=== PATIENT | male | born 1960 | race Caucasian/White ===

== ENCOUNTER → 2017-05-07 | Outpatient (CLI) | payer OTHER ==
--- NOTE | 2017-05-09 06:55 | CT ---
Procedure: CT CHEST WITH IV CONTRAST Exam date: 05/07/2017 1:30 PM CDT Ordering Provider: JOEY FOSTER Clinical Indication: Chest pain Comparison: None Technique: Using a multislice scanner, sequential axial imaging was obtained in the thorax from the level of the thoracic inlet through the lung bases. The exam was obtained with the administration of IV contrast. 2D sagittal and coronal reconstructed images were obtained. This exam was performed according to our departmental dose-optimization program, which includes automated exposure control, adjustment of the mA and/or kV according to patient size and/or use of iterative reconstruction technique. FINDINGS: Multiloculated thyroid goiter with extensive amorphous calcifications. This extends into the right paratracheal stripe to the level of the AP window. There are no pulmonary masses or nodules. There is no alveolar or interstitial infiltrate. There are no pleural effusions. Cardiac size is normal. There is no pericardial effusion. Aorta and pulmonary arteries are grossly unremarkable. Bullous timing was not sent for pulmonary angiography and segmental or subsegmental pulmonary emboli cannot be excluded. No dissection or aneurysm seen. There is no supraclavicular or axillary lymphadenopathy. There is no mediastinal, hilar, or subcarinal lymphadenopathy. There are no skeletal abnormalities. IMPRESSION 1. Nonacute contrast enhanced CT scan of the chest. 2. Heterogeneous calcified substernal thyroid goiter asymmetric to the right. Electronically signed by: Maury Moody MD 05/09/2017 6:55 AM CDT
== END | disposition home or self-care (01) ==
LOC: CT 13:02
PROVIDERS: ATTEND Internal Medicine Endocrinology, Diabetes & Metabolism
DX: E03.9 Hypothyroidism, unspecified (principal); E04.1 Nontoxic single thyroid nodule

== ENCOUNTER → 2017-10-15 | Outpatient (CLI) | payer OTHER ==
--- NOTE | 2017-10-16 08:48 | US ---
EXAM DESCRIPTION: Thyroid CLINICAL HISTORY: THYROID NODULE COMPARISON: 10/08/2015 TECHNIQUE: Routine sonographic imaging of the thyroid gland. FINDINGS: The right thyroid lobe measures 6.3 x 3.9 x 2.9 cm. The left thyroid lobe measures 3.1 x 0.9 x 1.0 cm. The thyroid isthmus measures 0.4 cm in thickness. Several thyroid nodules are demonstrated. The largest complex mostly solid hyperechoic nodule is in the mid right lobe measuring 4.0 x 2.3 x 2.4 cm. This has increased in size from 3.3 cm on the prior exam. Also demonstrated is an isoechoic complex solid nodule in the right inferior lobe measuring 2.2 x 1.3 x 2.0 cm. 0.4 cm nodule in the left lobe. IMPRESSION: 1. Multinodular appearance of the thyroid. There are 2 nodules in the right thyroid lobe which meet criteria for ultrasound-guided fine-needle aspiration. 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
== END | disposition home or self-care (01) ==
LOC: US 10:00
PROVIDERS: ATTEND Internal Medicine Endocrinology, Diabetes & Metabolism
DX: E04.1 Nontoxic single thyroid nodule (principal)

== ENCOUNTER 2018-01-23 06:05 | Day surgery (SDC) | payer OTHER ==
[2018-01-23] MEDS ORDERED: PROPOFOL 200 MG/20 ML VIAL IV ONE (06:06)
[2018-01-23] MEDS ORDERED: LACTATED RINGERS 1,000 ML ONE (06:10)
--- NOTE | 2018-01-23 10:56 | OP ---
DATE OF PROCEDURE: 01/23/18 PREOPERATIVE DIAGNOSIS: 1. Personal history of polyps. The patient had a large villous adenoma removed in 2016 in a piecemeal fashion. POSTOPERATIVE DIAGNOSIS: 1. Colonic polyps. PROCEDURE: 1. Colonoscopy plus polypectomy. SURGEON: Aplhonse Parnell MD. COMPLICATIONS: None apparent. BLOOD LOSS: None. MEDICATIONS: Monitored anesthesia care. DESCRIPTION OF PROCEDURE: Informed consent was obtained prior to sedation. The preprocedure cardiopulmonary assessment was satisfactory. The patient was placed in the left lateral decubitus position and was sedated. A digital rectal exam was unremarkable. The tip of the Olympus colonoscope was inserted in the rectum and guided over to the cecum. The cecum was identified by locating the ileocecal valve and appendiceal orifice. Prep was good overall. There was some fluid in the left colon that had to be suctioned away to allow for good visibility. The mucosa of the cecum, ascending colon, hepatic flexure , transverse colon, splenic flexure, descending colon and sigmoid colon was closely examined. Direct and retroflexed views of the rectum were obtained. The patient had 2 polyps seen. There was one in the transverse colon that seemed in the proximal transverse colon. It was sessile and about 1.5 cm in length. This was removed in a piecemeal fashion. I tattooed a few centimeters proximal and distal to the polypectomy site. A second polyp was in the descending colon. This was about 6 mm in size and was sessile. This was removed easily in one piece with the hot snare and recovered. The patient had previously had tattooing done in the sigmoid colon. There was no residual polyp seen around the tattooed site. No other polyps or pathology was identified. The procedure was then terminated. RECOMMENDATIONS: 1. Followup polyp pathology. 2. Followup with me in the clinic in a year. 3. He can resume his Plavix tomorrow. #[id number] cc: Terrance Khanna MD [facility]
[2018-01-23 13:16] VITALS: BP 134/83; TEMP 97.2; O2SAT 100
== END 2018-01-23 11:30 | disposition home or self-care (01) ==
LOC: AMB 06:05
PROVIDERS: ATTEND Internal Medicine Gastroenterology
DX: Z12.11 Encounter for screening for malignant neoplasm of colon (principal); D12.4 Benign neoplasm of descending colon; D12.3 Benign neoplasm of transverse colon; E11.9 Type 2 diabetes mellitus without complications; I10 Essential (primary) hypertension; I25.10 Atherosclerotic heart disease of native coronary artery without angina pectoris; E03.9 Hypothyroidism, unspecified; E66.9 Obesity, unspecified; K21.9 Gastro-esophageal reflux disease without esophagitis; Z95.5 Presence of coronary angioplasty implant and graft; Z68.30 Body mass index [BMI] 30.0-30.9, adult; Z86.010 Personal history of colon polyps; Z83.71 Family history of colonic polyps; Z79.84 Long term (current) use of oral hypoglycemic drugs; Z79.02 Long term (current) use of antithrombotics/antiplatelets; Z79.899 Other long term (current) drug therapy
CPT/HCPCS: 00812; 36416; 45385; 82948; J3490; J7120

== ENCOUNTER → 2020-06-16 | Outpatient (CLI) | payer OTHER | LOC: YCFC.O 10:35 | PROVIDERS: ATTEND Family Medicine | DX: L02.811 Cutaneous abscess of head [any part, except face] (principal) ==

== ENCOUNTER → 2020-07-08 | Outpatient (CLI) | payer OTHER ==
--- NOTE | 2020-07-09 10:10 | US ---
US THYROID CLINICAL STATEMENT:59 years Male THYROID NODULE. 3 or 4 prior biopsies benign. No mass. Thyroid medication. COMPARISON: September 2017 thyroid ultrasound. TECHNIQUE: Transcutaneous scanning, grayscale and Doppler modes. FINDINGS: Size right thyroid lobe: 5.9 x 2.6 x 2.2 cm Size left thyroid lobe: 3.9 x 1.0 x 1.3 cm Size isthmus: 0.31 cm Estimated total number of nodules greater than or equal to 1 cm: 2. Nodule 1: Size: 2.2 x 2.1 x 1.8 cm. Measurements in 2017:4.0 x 2.4 x 2.3 cm. Location: Right Mid Composition: solid or almost completely solid: 2 points Echogenicity: isoechoic: 1 point Shape: wider than tall: 0 points Margins: ill-defined: 0 points Echogenic foci: macrocalcifications: 1 point ACR Total Points: 4; ACR TI-RADS risk category: TR4 - moderately suspicious nodule. Nodule 2: Size: 1.9 x 1.8 X 1.4 cm. Measurements in 2017: 2.2 x 2.0 x 1.3 cm. Location: Right Lower Composition: solid or almost completely solid: 2 points Echogenicity: hypoechoic: 2 points Shape: taller than wide: 3 points Margins: ill-defined: 0 points Echogenic foci: peripheral calcifications: 2 points ACR Total Points: >/= 7; ACR TI-RADS risk category: TR5 - highly suspicious nodule. No dominant solid mass, no distinct cyst, fluid collection, or large calcifications. Overlying skin is unremarkable. IMPRESSION: 1. Nodule 1: ACR TI-RADS 2017 Category TR5. This nodule has decreased in size since the prior study. Recommend: Follow-up ultrasound in 1 year.. Recommendations based upon [facility] Best Practice recommendations and ACR TI-RADS 2017 guidelines. Please see below*. 2. Nodule 2: ACR TI-RADS 2017 Category TR4. This nodule has decreased in size since the prior study. Recommend: Follow-up ultrasound in 1 year. 3. Soft tissue around the thyroid gland is unremarkable. *ACR TI-RADS 2017 Recommendations for imaging follow-up of nodules (baseline study): TR1: No FNA or follow up TR2: No FNA or follow up TR3: FNA if >/= 2.5 cm, follow up if 1.5 - 2.4 cm in 1, 3, and 5 years TR4: FNA if >/= 1.5 cm, follow up if 1.0 - 1.4 cm in 1, 2, 3, and 5 years TR5: FNA if >/= 1.0 cm, follow up if 0.5 - 0.9 cm every year for 5 years ACR TI-RADS recommends that no more than two nodules with the highest ACR TI-RADS total point should be biopsied and no more than four nodules should be followed. These recommendations do not apply to patients with increased risk for thyroid cancer or patients with symptomatic thyroid disease. Electronically signed by: Blu Caraballo MD 07/09/2020 10:08 AM CDT
== END ==
LOC: US 08:02
PROVIDERS: ATTEND Internal Medicine Endocrinology, Diabetes & Metabolism
DX: E04.2 Nontoxic multinodular goiter (principal)

== ENCOUNTER → 2020-10-28 | Outpatient (CLI) | payer OTHER | LOC: YCFC.O 13:03 | PROVIDERS: ATTEND Nurse Practitioner Family | DX: Z11.59 Encounter for screening for other viral diseases (principal) ==